=== PATIENT | female | born 1990 | race Hispanic/Latino ===

== ENCOUNTER 2021-12-03 20:56 | Emergency (ER) | payer MEDICARE ==
[2021-12-03] MEDS ORDERED: diphenhydrAMINE 50 MG/ML VIAL IV ONE (22:06)
[2021-12-03] MEDS ORDERED: ONDANSETRON 4 MG/2 ML INJ IV ONE (22:06)
[2021-12-03] MEDS ORDERED: MORPHINE 2 MG/1 ML INJ IV ONE (22:06)
--- NOTE | 2021-12-03 22:21 | Emergency Department Report ---
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 Reports no fever, chills, sweats. No hematuria, no dysuria, no nausea vomiting -: Gradual, days(s) Radiation: non-radiation Severity scale (0 -10): 10 Quality: aching, dull, constant Consistency: constant Improves with: none Worsens with: none Associated Symptoms: denies: confusion, chest pain, cough, loss of appetite, malaise, nausea/vomiting - Related Data Previous Rx's Medication Instructions Recorded Last Taken Type Famotidine [Pepcid] 20 mg PO BID #60 tablet 11/04/21 Unknown Rx Folic Acid [Folvite] 1 mg PO QDAY #30 tablet 11/04/21 Unknown Rx Hydroxyurea 500 mg PO QDAY #30 cap 11/04/21 Unknown Rx oxyCODONE /ACETAMINOPHEN [Percocet 1 tab PO Q6H PRN #14 tablet 11/04/21 Unknown Rx 5/325 mg] Allergies Allergy/AdvReac Type Severity Reaction Status Date / Time No Known Allergies Allergy Verified 12/03/21 21:10 ED Review of Systems ROS: Stated complaint: SICKLE CRISIS Other details as noted in HPI Comment: All other systems reviewed and negative ED Past Medical Hx - Past Medical History Previous Medical History?: No Hx Congestive Heart Failure: No Hx Diabetes: No Hx Sickle Cell Disease: Yes Hx Asthma: No Hx COPD: No Hx HIV: No - Surgical History Past Surgical History?: Yes Additional Surgical History: pelvic surgery - Social History Smoking Status: Never Smoker Substance Use Type: None - Medications Home Medications: Home Medications Medication Instructions Recorded Confirmed Last Taken Type Famotidine [Pepcid] 20 mg PO BID #60 tablet 11/04/21 Unknown Rx Folic Acid [Folvite] 1 mg PO QDAY #30 tablet 11/04/21 Unknown Rx Hydroxyurea 500 mg PO QDAY #30 cap 11/04/21 Unknown Rx oxyCODONE /ACETAMINOPHEN [Percocet 1 tab PO Q6H PRN #14 tablet 11/04/21 Unknown Rx 5/325 mg] ED Physical Exam - General Limitations: No Limitations General appearance: alert, in no apparent distress - Head Head exam: Present: atraumatic, normocephalic - Eye Eye exam: Present: normal appearance, PERRL, EOMI Pupils: Present: normal accommodation - ENT ENT exam: Present: normal exam, mucous membranes moist - Neck Neck exam: Present: normal inspection - Respiratory Respiratory exam: Present: normal lung sounds bilaterally. Absent: respiratory distress - Cardiovascular Cardiovascular Exam: Present: regular rate, normal rhythm. Absent: systolic murmur, diastolic murmur, rubs, gallop - GI/Abdominal GI/Abdominal exam: Present: soft, normal bowel sounds - Extremities Exam Extremities exam: Present: normal inspection - Back Exam Back exam: Present: normal inspection - Neurological Exam Neurological exam: Present: alert, oriented X3 - Psychiatric Psychiatric exam: Present: normal affect, normal mood - Skin Skin exam: Present: warm, dry, intact, normal color. Absent: rash ED Course Vital Signs 12/03/21 21:07 Temperature 97.9 F Pulse Rate 122 H Respiratory 20 Rate Blood Pressure 109/64 [Left] O2 Sat by Pulse 95 Oximetry ED Medical Decision Making - Lab Data Result diagrams: 12/03/21 22:21 Lab Results 12/03/21 12/03/21 12/04/21 Range/Units 22:21 22:21 Unknown WBC 12.6 H (4.5-11.0) K/mm3 RBC 2.63 L (3.65-5.03) M/mm3 Hgb 8.9 L (10.1-14.3) gm/dl Hct 27.1 L (30.3-42.9) % MCV 103 H (79-97) fl MCH 34 H (28-32) pg MCHC 33 (30-34) % RDW 22.1 H (13.2-15.2) % Plt Count 298 (140-440) K/mm3 Lymph % (Auto) 23.4 (13.4-35.0) % [place] % (Auto) 2.9 (0.0-7.3) % Eos % (Auto) 0.4 (0.0-4.3) % Baso % (Auto) 0.5 (0.0-1.8) % Lymph # (Auto) 2.9 (1.2-5.4) K/mm3 Bacon # (Auto) 0.4 (0.0-0.8) K/mm3 Eos # (Auto) 0.0 (0.0-0.4) K/mm3 Baso # (Auto) 0.1 (0.0-0.1) K/mm3 Seg Neutrophils % 72.8 H (40.0-70.0) % Seg Neutrophils # 9.2 H (1.8-7.7) K/mm3 Percent Retic 7.00 H (0.78-2.58) % HCG, Qual Negative (Negative) Urine Color Yellow (Yellow) Urine Turbidity Slightly-cloudy (Clear) Urine pH 6.0 (5.0-7.0) Ur Specific [place] 1.010 (1.003-1.030) Urine Protein <15 mg/dl (Negative) mg/dL Urine Glucose (UA) Neg (Negative) mg/dL Urine Ketones Neg (Negative) mg/dL Urine Blood Neg (Negative) Urine Nitrite Neg (Negative) Urine Bilirubin Neg (Negative) Urine Urobilinogen < 2.0 (<2.0) mg/dL Ur Leukocyte Esterase Neg (Negative) Urine WBC (Auto) 4.0 (0.0-6.0) /HPF Urine RBC (Auto) < 1.0 (0.0-6.0) /HPF U Epithel Cells (Auto) 11.0 (0-13.0) /HPF Urine Mucus Few /HPF - Medical Decision Making This 31-year-old female patient with reported sickle cell disease who has relocated from [place] about 3 months ago presents with with pain to her buttocks and hip region suggestive of a sickle cell crisis/vaso-occlusive crisis Considered acute chest, stroke, splenic sequestration, and other emergent complications of sickle cell disease. Consider alternate etiologies of this patient's pain to include fracture, musculoskeletal pain, infection/abscess, other ischemic etiologies but doubt these are likely. No evidence of any jaundice, headache, dizziness, chest pain, shortness of breath. We will plan for pain control using the patient's pain management plan, basic labs and reticulocyte count and likely discharge Plan she was treated with multiple rounds of morphine in conjunction with Toradol as well as fluid hydration before being in discharged home states that she does still have some of the hydroxyurea present and no refills are needed at this present time Critical care attestation.: If time is entered above; I have spent that time in minutes in the direct care of this critically ill patient, excluding procedure time. ED Disposition Clinical Impression: Sickle-cell disease with pain Disposition: 01 HOME / SELF CARE / HOMELESS Is pt being admited?: No Does the pt Need Aspirin: No Condition: Stable Instructions: Sickle Cell Testing, Blood Smear Test
[2021-12-03 23:09] LABS: Basophils # (Auto) 0.1 K/mm3 (0.0-0.1); Basophils % (Auto) 0.5 % (0.0-1.8); Eosinophils % (Auto) 0.4 % (0.0-4.3); Hematocrit 27.1 % (30.3-42.9); Hemoglobin 8.9 gm/dl (10.1-14.3); Lymphocytes # (Auto) 2.9 K/mm3 (1.2-5.4); Lymphocytes % (Auto) 23.4 % (13.4-35.0); Mean Corpuscular HGB Conc 33 % (30-34); Mean Corpuscular Volume 103 fl (79-97); Monocytes # (Auto) 0.4 K/mm3 (0.0-0.8); Monocytes % (Auto) 2.9 % (0.0-7.3); Platelet Count 298 K/mm3 (140-440); Red Blood Count 2.63 M/mm3 (3.65-5.03)
[2021-12-03 23:12] LABS: Red Cell Distribution Width 22.1 % (13.2-15.2)
[2021-12-04 00:26] LABS: Bilirubin,Urine NEG (Negative); Blood,Urine NEG (Negative); Color,Urine Yellow (Yellow); Protein,Urine <15 mg/dL mg/dL (Negative); Urobilinogen,Urine < 2.0 mg/dL (<2.0)
[2021-12-04 00:33] LABS: Mucus,Urine FEW /HPF
[2021-12-04 00:35] LABS: RBC,Urine < 1.0 /HPF (0.0-6.0)
[2021-12-04] MEDS ORDERED: SODIUM CHLORIDE 0.9% 1000 ML 1,000 ML IV ONE (01:05)
[2021-12-04] MEDS ORDERED: MORPHINE 4 MG/1 ML INJ IV STA (01:05)
[2021-12-04] MEDS ORDERED: KETOROLAC 30 MG/1 ML INJ IV STA (03:46)
[2021-12-04 07:25] VITALS: BP 128/82
== END 2021-12-04 07:26 | disposition home or self-care (01) ==
LOC: ED 20:56
DX: D57.00 Hb-SS disease with crisis, unspecified (principal); Z79.899 Other long term (current) drug therapy
CPT/HCPCS: 36415; 81001; 84703; 85025; 85045; 96361; 96374; 96375; 96376; 99283; J1200; J1885; J2270; J2405; J7030